=== PATIENT | male | born 1945 | race Caucasian/White ===

== ENCOUNTER → 2017-01-11 | Outpatient (CLI) | payer BC ==
[~2017-01-11] MED LIST: TEST5GEL TOP
[2017-01-11 12:22] LABS: ESTIMATED AVERAGE GLUCOSE 126 mg/dl; HA1C FLAG Normal (Normal)
[2017-01-11 12:24] LABS: ALT/SGPT 15 U/L (12-78); BLOOD UREA NITROGEN 17 mg/dl (7-18); BUN/CREATININE RATIO 16.9 (10-20); CALCIUM 8.1 mg/dl (8.5-10.1); CARBON DIOXIDE 26 mmol/L (21-32); CHLORIDE 111 mmol/L (98-107); GLUCOSE 90 mg/dl (70-99); POTASSIUM 4.1 mmol/L (3.5-5.1); SODIUM 144 mmol/L (136-145)
[2017-01-11 12:28] LABS: ALB/GLOB RATIO 0.6 (0.9-2); ALKALINE PHOSPHATASE 67 U/L (45-117); AST/SGOT 14 U/L (15-37)
--- NOTE | 2017-01-15 11:36 | CODING QUERY MEDICAL NECESSITY ---
SUPPORTING DIAGNOSIS NEEDED A supporting diagnosis is required for the test/procedure performed on this patient in order for us to be reimbursed by the patient's insurance. Please provide a supporting diagnosis for the following test/procedure listed below next to the test name along with your signature. *If there is no additional diagnosis for this patient that would support the following test/procedure please document that below next to the test/procedure. Test(s)/Procedure(s) that require a supporting diagnosis: * PSA DIAGNOSIS: * DOS: 01/11/17 Provider Signature: Date: Thank you Mayelin Douglas [employer] Once completed, please kindly fax back to [phone] For questions please call [phone]
--- NOTE | 2017-01-15 11:39 | CODING QUERY MEDICAL NECESSITY ---
SUPPORTING DIAGNOSIS NEEDED A supporting diagnosis is required for the test/procedure performed on this patient in order for us to be reimbursed by the patient's insurance. Please provide a supporting diagnosis for the following test/procedure listed below next to the test name along with your signature. *If there is no additional diagnosis for this patient that would support the following test/procedure please document that below next to the test/procedure. Test(s)/Procedure(s) that require a supporting diagnosis: * GLYCATED HEMOGLOBIN DIAGNOSIS: * DOS: 01/11/17 Provider Signature: Date: Thank you Mayelin Douglas Health Information Management Once completed, please kindly fax back to [phone] For questions please call [phone]
== END | disposition home or self-care (01) ==
LOC: C.LAB 10:39
PROVIDERS: ATTEND Family Medicine
DX: J34.3 Hypertrophy of nasal turbinates (principal); R73.03 Prediabetes; N40.1 Benign prostatic hyperplasia with lower urinary tract symptoms

== ENCOUNTER 2017-09-04 01:54 | Emergency (ER) | payer BC ==
[~2017-09-04] VITALS: Ht 157.5 cm; Wt 74.8 kg
[2017-09-04 01:57] VITALS: TEMP 36.8; Ht 157.5 cm; Wt 74.8 kg
[2017-09-04] MEDS ORDERED: PROPARACAINE HCL 0.5% OP SOLN 15 ML BTL ONE (02:05)
[2017-09-04] MEDS ORDERED: CIPROFLOXACIN HCL 0.3% OP SOLN 2.5 ML BTL OP STA (02:24)
--- NOTE | 2017-09-04 02:48 | EMERGENCY ROOM VISIT NOTE ---
ED Visit Note First contact with patient: 02:04 CHIEF COMPLAINT: Eye pain HISTORY OF PRESENT ILLNESS: This 72 yo patient presents to the emergency department with complaining of pain in the right eye after accidently breaking a bowl and possibly getting a piece of this in his eye. There has been a constant moderate pain and irritation, redness and tearing in the eye. There is a mild blurring of vision at times and light bothers the eye. The vision has not been decreased over all. The patient does not wear contacts. The patient rates the pain as irritating and 6/10. The patient has not had previous injuries to this eye. Tetanus shot is unsure if up to date. Patient has had cataract surgery and follows with ophthalmology in [place]. REVIEW OF SYSTEMS: A 6 system review of systems was completed with positives and pertinent negatives listed in the HPI. ALLERGIES: None MEDICATIONS: None PMH: Cataract surgery SOCIAL HISTORY: No drug use PHYSICAL EXAM: Vital Signs: Reviewed Nurse's notes, vital signs hypertensive. Visual acuity reviewed from nursing. GENERAL: This is a pleasant anxious- appearing male, in no acute distress, but who is uncomfortable from the eye problem. Well-developed well-nourished. EYES: The pupils are equal round and reactive to light and accommodation. EOMs are full and without tenderness. There is discharge of clear tears from the right eye which is injected. There is no foreign body visible under the eyelid even after lid eversion. Funduscopic exam reveals no hemorrhages, papilledema, or other abnormalities. No foreign body was seen embedded in the cornea under slit lamp exam. The cornea was clear and no hyphema was seen. Fluorescein uptake was observed with ultraviolet light significant for a corneal abrasion at 7:00 2 mm. Blood pressure was reviewed and most likely elevated secondary to situational. EMERGENCY DEPARTMENT COURSE: I examined the patient. Alcaine 2 drops were placed in the patient's right eye. A slit lamp exam was performed as above. Ciloxan two drops was placed in the patient's right eye. Patient was concern for other foreign bodies in the eyes and the eye was irrigated. I was reassessed and still no formalized visualized. He was advised to follow-up with mounted police officer in a few days or here in the ER sooner for eye pain, vision problems, worsening signs or symptoms or as needed. The patient was discharged home in good condition. DIAGNOSIS: Corneal abrasion of the right eye DISCHARGE INSTRUCTIONS AND TREATMENT: Use Ciloxin two drops in right eye every two hours while awake for two days; then two drops every four hours while awake for 5 days. Use Ibuprofen 600 mg or Tylenol 1000 mg every 6 hrs as needed for moderate pain. Follow up with your mounted police officer in 24-48 hours for a recheck. Return to the ED for increasing pain or changes in vision. Current/Historical Medications Scheduled Testosterone (Androgel Pump), 40.5 MG TOP DAILY Allergies Coded Allergies: No Known Allergies (Unverified , 01/08/16) Vital Signs Date Time Temp Pulse Resp B/P (MAP) Pulse Ox O2 Delivery O2 Flow Rate FiO2 09/04/17 01:57 36.8 65 20 189/82 97 Room Air Departure Information Referrals Denzel Srivastava M.D. (PCP) Patient Instructions [facility]
[2017-09-04 03:22] VITALS: BP 130/78; PULSE 70; O2SAT 92
--- NOTE | 2017-09-04 04:13 | EMERGENCY ROOM VISIT NOTE ---
ED Visit Note First contact with patient: 02:04 I have personally seen and evaluated the patient with the PA. I agree with the diagnosis and management decisions and have been personally involved in the case. Please see Whitley Carrillo PA-C's notes for further details of the history, physical and visit.
== END 2017-09-04 03:24 | disposition home or self-care (01) ==
LOC: C.EDB 01:56 → C.EDA 03:24
DX: S05.01XA Injury of conjunctiva and corneal abrasion without foreign body, right eye, initial encounter (principal); X58.XXXA Exposure to other specified factors, initial encounter; Z98.49 Cataract extraction status, unspecified eye; Z79.899 Other long term (current) drug therapy

== ENCOUNTER → 2018-01-13 | Outpatient (CLI) | payer BC | END | disposition home or self-care (01) | LOC: C.LAB 11:36 | PROVIDERS: ATTEND Urology | DX: Z00.00 Encounter for general adult medical examination without abnormal findings (principal); N40.1 Benign prostatic hyperplasia with lower urinary tract symptoms; N52.9 Male erectile dysfunction, unspecified ==

== ENCOUNTER 2024-01-23 19:16 | Inpatient (IN) ==
[2024-01-23] MEDS: OPTIRAY 320 125ml IV ONE (20:21)
[2024-01-23 20:32] LABS: Eosinophils # (auto) 0.29 K/uL (0.00-0.50); Hemoglobin 14.5 g/dl (14.0-18.0); Immature Granulocytes # (auto) 0.02 K/uL (0.01-0.20); Immature Granulocytes % (auto) 0.2 %; Lymphocytes # (auto) 2.23 K/uL (1.20-3.40); Lymphocytes % (auto) 23.2 %; Mean Corpuscular Hemoglobin 30.6 pg (25.0-34.0); Mean Corpuscular Hgb Conc 34.5 g/dL (32.0-36.0); Mean Corpuscular Volume 88.6 fL (80.0-100.0); Mean Platelet Volume 10.3 fL (9.4-12.4); Monocytes # (auto) 0.98 K/uL (0.11-0.59); Monocytes % (auto) 10.2 %; Neutrophils # (auto) 5.98 K/uL (1.40-6.50); Neutrophils % (auto) 62.4 %; Platelet Count 290 K/uL (130-400); RDW Standard Deviation 45.4 fL (36.4-46.3); Red Blood Count 4.74 M/uL (4.70-6.10)
[2024-01-23 20:36] LABS: BUN Creatinine Ratio 16.8 (10-20); Calcium 8.7 mg/dl (8.6-10.3); Creatinine Clr Calc Pharmacy 43.9 ml/min; Est GFR (African American) 67.4 ml/min; Est GFR (Non-African American) 58.2 ml/min; Potassium 3.6 mmol/L (3.5-5.1)
--- NOTE | 2024-01-23 20:45 | CT Scan Report ---
Exam(s): CTA CHEST IV Amt: 88 ml opti 320 EXAM: CT Angiography Chest With Intravenous Contrast CLINICAL HISTORY: ro PE. TECHNIQUE: Axial computed tomographic angiography images of the chest with intravenous contrast. CTDI is 19 mGy and DLP is 665.69 mGy-cm. Automated exposure control was utilized for the study. A dose lowering technique was utilized adhering to the principles of ALARA. MIP reconstructed images were created and reviewed. COMPARISON: No relevant prior studies available. FINDINGS: Pulmonary arteries: There is no evidence for pulmonary embolism. Aorta: The ascending aorta is ectatic, measuring 4 cm in diameter. The aortic arch and descending aorta are normal in caliber with atherosclerotic calcification. No thoracic aortic aneurysm. 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 Curvilinear presumed scarring noted posteriorly and laterally at the right lung apex. Subsegmental curvilinear changes noted in the posterior lower lobes bilaterally. Noncalcified pulmonary nodules are noted in the lateral aspect of the right lower lobe, anterobasal segment superiorly and inferiorly. The largest nodule noted superiorly measures 5 mm. No consolidation. Pleural space: Unremarkable. No significant effusion. No pneumothorax. Heart: The cardiac chambers are normal in size. There is reflux of contrast into the intrahepatic IVC and hepatic veins. Prominent coronary artery calcification. Trace pericardial effusion. Bones/joints: No acute fracture. No dislocation. Soft tissues: Unremarkable. Lymph nodes: Unremarkable. No enlarged lymph nodes. IMPRESSION: 1. There is no evidence for pulmonary embolism. 2. 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 Curvilinear presumed scarring noted posteriorly and laterally at the right lung apex. Subsegmental curvilinear changes noted in the posterior lower lobes bilaterally. Suspect subsegmental atelectasis. No pleural effusion or pneumothorax. 3. Noncalcified pulmonary nodules are noted in the lateral aspect of the right lower lobe, anterobasal segment superiorly and inferiorly. The largest nodule noted superiorly measures 5 mm. Fleischner Society Guidelines recommended considering a follow-up chest CT at 12 months in a patient with a high risk of malignancy due. If unchanged, no further follow-up is necessary. 4. The cardiac chambers are normal in size. There is reflux of contrast into the intrahepatic IVC and hepatic veins. This may be related to rate of contrast administration. However, this finding is often seen with right heart dysfunction. Please correlate with corollary cardiovascular studies, as appropriate. Electronically signed by: Jim Medina MD 01/23/24 20:44 PM
[2024-01-23 20:46] LABS: Partial Thromboplastin Time 29 Seconds (21-31); Prothrombin Time 10.9 Seconds (9.0-12.0); Troponin I High Sensitivity 10125.9 pg/ml (0-20)
[2024-01-23] MEDS ORDERED: Heparin IV Adult Wt-Based Low-Dose w/ INITIAL Bolus Protocol IV STA (20:58)
[2024-01-23] MEDS: ASPIRIN 81 MG CHEW PO STA (21:11)
[2024-01-23] MEDS ORDERED: HEPARIN SOD (PORCINE) 1000 UNIT/ML IV ONE (21:14)
[2024-01-23] MEDS: HEPARIN SOD (PORCINE) 1000 UNIT/ML IV ONE (21:28)
[2024-01-23] MEDS: HEPARIN SODIUM/DEXTROSE 25,000 UNITS/500 ML BAG IV SCH (21:28)
--- NOTE | 2024-01-23 22:12 | Emergency Department Note ---
History of Present Illness General Chief Complaint: Cardiac Assessment Stated Complaint: FEELS FAINT, TROPININ/3000,SOME CHEST PAIN Time Seen by Provider: 01/23/24 19:28 History of Present Illness Provider Complaint: chest pain Onset (ago): month(s) 1 Duration: intermittent Onset: during rest Pain Location: substernal Pain Radiation: none Severity: moderate Maximum Pain Intensity: 5 Current Pain Intensity: 0 Quality: + aching and + dull Relieved By: + nothing Exacerbated By: + nothing Context: + recent travel; no recent illness, no recent surgery, no recent immobilization, no trauma/injury, no new medications or no history of DVT/PE Associated symptoms: no nausea, no vomiting, no diaphoresis, no dyspnea, no syncope, no palpitations, no fever or no cough Patient went to his PCP today due to his ongoing chest pain and was referred to the emergency department due to an elevated troponin level. Home Medications Medication Instructions Recorded Confirmed Type ascorbic acid (vitamin C) 500 mg 500 mg PO DAILY 06/10/19 01/23/24 History tablet multivitamin 1 tab PO DAILY 06/12/19 01/23/24 History lactobacillus combination no.9 4 4,000 mmu cells PO DAILY 07/02/19 01/23/24 History billion cell capsule (Adult 50 Plus Probiotic) cholecalciferol (vitamin D3) 125 10,000 units PO DAILY 09/14/19 01/23/24 History mcg (5,000 unit) capsule cyanocobalamin (vitamin B-12) 1,000 mcg PO DAILY 01/23/24 01/23/24 History 1,000 mcg tablet (Vitamin B-12) vitamin K2 100 mcg capsule 100 mcg PO DAILY 01/23/24 01/23/24 History Allergies Allergy/AdvReac Type Severity Reaction Status Date / Time amoxicillin [From Augmentin] Allergy Unknown CAN'T Verified 01/23/24 21:23 REMEMBER clavulanic acid Allergy Unknown CAN'T Verified 01/23/24 21:23 [From Augmentin] REMEMBER Past Med/Surg History Medical History Osteoporosis 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 Erectile dysfunction Surgical History No significant past surgical history Social History Smoking Status: Never smoker Hx Alcohol Use: Yes Preferred Language: Filipino marital status: Current Living Situation: Spouse current occupational status: retired Feels Safe at Home: Yes Physical Exam Vital Signs Vital Signs - 24 hr 01/23/24 19:21 01/23/24 19:40 01/23/24 20:21 Temperature 36.5 C Temperature Source Temporal Artery Scan Pulse Rate 75 66 Pulse Rate [Left Apical] 78 Respiratory Rate 18 21 Respiratory Effort / Characteristics Non-Labored Spontaneous Non-Labored Respiratory Depth Normal Normal Respiratory Pattern Regular Blood Pressure 166/78 H Blood Pressure [Right Arm] 142/113 H Blood Pressure Mean 107 Blood Pressure Mean [Right Arm] 122 Pulse Oximetry 95 96 Oxygen Delivery Method Room Air Room Air Sepsis Recent Fever Within 48 Hours No Sepsis New/Unexplained Change in Mental Status N/A Sepsis Action Taken by Nursing No Action Required 01/23/24 21:00 Temperature Temperature Source Pulse Rate 64 Pulse Rate [Left Apical] Respiratory Rate 17 Respiratory Effort / Characteristics Respiratory Depth Respiratory Pattern Blood Pressure 141/75 H Blood Pressure [Right Arm] Blood Pressure Mean 97 Blood Pressure Mean [Right Arm] Pulse Oximetry 94 Oxygen Delivery Method Room Air Sepsis Recent Fever Within 48 Hours Sepsis New/Unexplained Change in Mental Status Sepsis Action Taken by Nursing Physical Exam GENERAL: oriented to person, place, and time. appears well-developed and well- nourished. HENT: Exam performed. - Head: Normocephalic and atraumatic. EYES: Conjunctivae and EOM are normal. Right eye exhibits no discharge. Left eye exhibits no discharge. No scleral icterus. NECK: Normal range of motion. Neck supple. No JVD present. CV: Normal rate, regular rhythm, normal heart sounds and intact distal pulses. There is no peripheral edema. Palpable radial pulses bue. PULM/CHEST: Effort normal and breath sounds normal. No respiratory distress. No stridor. no wheezes. no rales. ABD: The abdomen is soft. There is no tenderness. NEURO: Motor and sensation grossly intact. SKIN: Skin is warm and dry. He is not diaphoretic. PSYCH: normal mood and affect. Behavior is normal. Judgment and thought content normal. Course Course 1927: The patient was evaluated in room C1. A complete history and physical exam was performed Cardiac monitoring: An order was placed for continuous cardiac monitoring. The monitor shows a rate of 70 with sinus rhythm interpreted by nc 2115: Vital signs stable. Patient reports no chest pain at this time. Imaging shows no PE or dissection. Labs show an increase in his troponin up to 10,125 now. Patient is still reporting no chest pain. Discussed the case with [facility] cardiology Dr. Hawk as well as [facility] hospitalist team Dr. Carlson and we all agree to start the patient on heparin bolus and drip. Dr. Hawk also recommends aspirin and Lipitor 80 mg. Patient will be admitted to Dr. Carlson service Administered Medications Heparin Sodium/Dextrose (Heparin Sodium/Dextrose) 25,000 units in 500 mls @ 15 mls/hr IV .Q24H [facility]; Protocol Stop: 02/22/24 21:14 Last Admin: 01/23/24 21:28 Dose: 750 units/hr, 15 mls/hr Documented By: DULCE Co-signed By: MATTI Discontinued Medications Aspirin (Aspirin 81 Mg Chew) 324 mg PO NOW STA Stop: 01/23/24 21:01 Last Admin: 01/23/24 21:11 Dose: 324 mg Documented By: DULCE Heparin Sodium (Porcine) (Heparin Sod (Porcine) 1000 Unit/Ml) 4,000 units IV NOW ONE Stop: 01/23/24 21:31 Last Admin: 01/23/24 21:28 Dose: 4,000 units Documented By: DULCE Co-signed By: MATTI Ioversol (Optiray 320 125ml) 88 ml IV ONCE ONE Stop: 01/23/24 20:22 Last Admin: 01/23/24 20:21 Dose: 88 ml Documented By: GEORGE Medical Decision Making Medical Records Attestation: I reviewed the patient's medical records. Medical records narrative: External medical records reviewed. Patient had outpatient blood work done today at 1621 which was significant for high-sensitivity troponin of 3206.2. Laboratory Data Attestation: I reviewed the patient's lab results. 01/23/24 19:48 01/23/24 19:48 Labs: Lab Results 01/23/24 Range/Units 19:48 WBC 9.60 (4.8-10.8) K/ul RBC 4.74 (4.70-6.10) M/uL Hgb 14.5 (14.0-18.0) g/dl Hct 42.0 (42.0-52.0) % MCV 88.6 (80.0-100.0) fL MCH 30.6 (25.0-34.0) pg MCHC 34.5 (32.0-36.0) g/dL RDW Std Deviation 45.4 (36.4-46.3) fL RDW Coeff of Echo 14.0 (11.5-14.5) % Plt Count 290 (130-400) K/uL MPV 10.3 (9.4-12.4) fL Immature Gran % (Auto) 0.2 % Neut % (Auto) 62.4 % Lymph % (Auto) 23.2 % Shelby % (Auto) 10.2 % Eos % (Auto) 3.0 % Baso % (Auto) 1.0 % Neut # (Auto) 5.98 (1.40-6.50) K/uL Lymph # (Auto) 2.23 (1.20-3.40) K/uL Shelby # (Auto) 0.98 H (0.11-0.59) K/uL Eos # (Auto) 0.29 (0.00-0.50) K/uL Baso # (Auto) 0.10 (0.00-0.20) K/uL Immature Gran # (Auto) 0.02 (0.01-0.20) K/uL PT 10.9 (9.0-12.0) Seconds INR 1.0 (0.9-1.1) APTT 29 (21-31) Seconds PTT Ratio 1.0 Sodium 138 (136-145) mmol/L Potassium 3.6 (3.5-5.1) mmol/L Chloride 107 (98-107) mmol/L Carbon Dioxide 22 (21-32) mmol/L Anion Gap 9 (3-11) BUN 20 (6-23) mg/dl Creatinine 1.19 (0.6-1.4) mg/dl Est Cr Clr Drug Dosing 43.9 ml/min Est GFR ( Amer) 67.4 ml/min Est GFR (Non-Af Amer) 58.2 ml/min BUN/Creatinine Ratio 16.8 (10-20) Glucose 104 H (70-99(Fasting)) mg/dl Calcium 8.7 (8.6-10.3) mg/dl Troponin I High Sens 36466.9 H* D (0-20) pg/ml Lipase 41 (11-82) U/L Imaging Data Chest x-ray: Attestation: I personally reviewed and interpreted this imaging study as follows: My impression: Chest x-ray negative. Airway clear. No pneumothorax. No consolidation. No cardiomegaly or cephalization.. No free air under the diaphragm. No fractures of the skeletal structures. CT scan - chest: Radiologist's impression: Exam(s): CTA CHEST IV Amt: 88 ml opti 320 EXAM: CT Angiography Chest With Intravenous Contrast CLINICAL HISTORY: ro PE. TECHNIQUE: Axial computed tomographic angiography images of the chest with intravenous contrast. CTDI is 19 mGy and DLP is 665.69 mGy-cm. Automated exposure control was utilized for the study. A dose lowering technique was utilized adhering to the principles of ALARA. MIP reconstructed images were created and reviewed. COMPARISON: No relevant prior studies available. FINDINGS: Pulmonary arteries: There is no evidence for pulmonary embolism. Aorta: The ascending aorta is ectatic, measuring 4 cm in diameter. The aortic arch and descending aorta are normal in caliber with atherosclerotic calcification. No thoracic aortic aneurysm. 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 Curvilinear presumed scarring noted posteriorly and laterally at the right lung apex. Subsegmental curvilinear changes noted in the posterior lower lobes bilaterally. Noncalcified pulmonary nodules are noted in the lateral aspect of the right lower lobe, anterobasal segment superiorly and inferiorly. The largest nodule noted superiorly measures 5 mm. No consolidation. Pleural space: Unremarkable. No significant effusion. No pneumothorax. Heart: The cardiac chambers are normal in size. There is reflux of contrast into the intrahepatic IVC and hepatic veins. Prominent coronary artery calcification. Trace pericardial effusion. Bones/joints: No acute fracture. No dislocation. Soft tissues: Unremarkable. Lymph nodes: Unremarkable. No enlarged lymph nodes. IMPRESSION: 1. There is no evidence for pulmonary embolism. 2. 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 Curvilinear presumed scarring noted posteriorly and laterally at the right lung apex. Subsegmental curvilinear changes noted in the posterior lower lobes bilaterally. Suspect subsegmental atelectasis. No pleural effusion or pneumothorax. 3. Noncalcified pulmonary nodules are noted in the lateral aspect of the right lower lobe, anterobasal segment superiorly and inferiorly. The largest nodule noted superiorly measures 5 mm. Fleischner Society Guidelines recommended considering a follow-up chest CT at 12 months in a patient with a high risk of malignancy due. If unchanged, no further follow-up is necessary. 4. The cardiac chambers are normal in size. There is reflux of contrast into the intrahepatic IVC and hepatic veins. This may be related to rate of contrast administration. However, this finding is often seen with right heart dysfunction. Please correlate with corollary cardiovascular studies, as appropriate. Electronically signed by: Jim Medina MD 01/23/24 20:44 PM Dictated: 01/23/242043 Transcribed: 01/23/242043 ECG Data Attestation: I personally reviewed and interpreted this ECG as follows: Additional Comments: EKG #1 at 1931: Sinus arrhythmia with a rate of 72. [place] 162 QRS [address] elevation or ST depression. Bifascicular block present. No previous EKGs to compare. EKG #2 at 1946: Sinus rhythm with a rate of 62. [place] 150 QRS [address] elevation or ST depression. Bifascicular block present. No significant change from the EKG done at 1931. [facility] Narrative 1928: The patient was evaluated in room C1. A complete history and physical exam was performed Cardiac monitoring: An order was placed for continuous cardiac monitoring. The monitor shows a rate of 70 with sinus rhythm interpreted by nc 2115: Vital signs stable. Patient reports no chest pain at this time. Imaging shows no PE or dissection. Labs show an increase in his troponin up to 10,125 now. Patient is still reporting no chest pain. Discussed the case with [facility] cardiology Dr. Hawk as well as [facility] hospitalist team Dr. Carlson and we all agree to start the patient on heparin bolus and drip. Dr. Hawk also recommends aspirin and Lipitor 80 mg. Patient will be admitted to Dr. Carlson service Impression & Plan Non-ST elevation UT (NSTEMI) Critical Care Time Critical Care Time: Yes Total Critical Care Time: 78 I have personally spent greater than 78 minutes of critical care time in the direct management of this patient. This includes bedside care, interpretation of diagnostic studies, and testing, discussion with consultants, patient, and family members, and other required patient management activities. This 78 minutes is in excess of all separately billable procedures. Discharge Plan Visit Data Chief Complaint: Cardiac Assessment Stated Complaint: FEELS FAINT, TROPININ/3000,SOME CHEST PAIN ED Provider: Rick Ackerman Discharge Problem: Non-ST elevation UT (NSTEMI) Patient Disposition: Admitted As Inpatient Forms Stand Alone Forms: Counts Include [facility] Prescriptions Prescriptions: No Action ascorbic acid (vitamin C) 500 mg tablet 500 mg PO DAILY multivitamin tablet 1 tab PO DAILY Rx Instructions: OCCASIONALLY Adult 50 Plus Probiotic 4 billion cell capsule 4,000 mmu cells PO DAILY cholecalciferol (vitamin D3) 5,000 unit capsule 10,000 units PO DAILY cyanocobalamin (vitamin B-12) [Vitamin B-12] 1,000 mcg Tablet 1,000 mcg PO DAILY Rx Instructions: OCCASIONALLY vitamin K2 100 mcg Capsule 100 mcg PO DAILY Rx Instructions: OCCASIONALLY Referrals Referrals: Denzel Srivastava MD [Primary Care Provider] -
[2024-01-23] MEDS: ATORVASTATIN 40 MG TAB PO STA (22:20)
[2024-01-23] MEDS: LORazepam 0.5 MG TAB PO STA (23:27)
--- NOTE | 2024-01-24 01:24 | History & Physical Report ---
Date of Service January 24, 2024 Assessment & Plan (1) Non-ST elevation [place] (NSTEMI): Plan: 78-year-old male with past medical history significant for dyslipidemia, history of prediabetes, history of emphysema, lung nodules, chronic rhinitis, history of arterial calcification, BPH, history of positive CLAY, low testosterone in male, history of former tobacco abuse, history of osteonecrosis presents with chest pain and found to elevated troponins. Patient states having chest pains on and off since last 1 week. Since last2- 3 days the pain has been constant in the middle of the lower part of the chest at 1 spot. States it is very mild 1/10 in severity. No association with any activity. Denies any shortness of breath. Denies any dizziness. No sweating. No nausea. Patient states that he is not being very much active. Denies any cough. Denies any fevers. Vision is okay. No runny nose or sore throat. No cough. Appetite is okay. Normal bowel and bladder movements. Denies any blood in the stools and denies any hematuria. He states few days ago he noted some swelling in the legs. Went to PCP office today and labs showed elevated troponin and was advised to come to the ER Non-ST elevated WI Troponin was 3000 on outpatient labs Troponin was 10,000 in the ER and repeat was 15,000 Has mild chest discomfort Placed on IV heparin and received full dose aspirin and high-dose statin. Will continue aspirin and statin As his troponin is trending up and has mild chest discomfort repeated EKG which seems mostly similar to previous Discussed with cardiology Placed on Nitropaste If the pain does not improve with Nitropaste to call back interventional cardiology for possible urgent cardiac cath Checked him later after nitropaste and chest pain resolved Close monitoring telemetry Hyperlipidemia Will follow lipid profile DVT prophylaxis On IV heparin Disposition Telemetry Full code History of Present Illness Chief Complaint: Chest pain Primary Care Provider: Denzel Srivastava MD 78-year-old male with past medical history significant for dyslipidemia, history of prediabetes, history of emphysema, lung nodules, chronic rhinitis, history of arterial calcification, BPH, history of positive CLAY, low testosterone in male, history of former tobacco abuse, history of osteonecrosis presents with chest pain and found to elevated troponins. Patient states having chest pains on and off since last 1 week. Since last2- 3 days the pain has been constant in the middle of the lower part of the chest at 1 spot. States it is very mild 1/10 in severity. No association with any activity. Denies any shortness of breath. Denies any dizziness. No sweating. No nausea. Patient states that he is not being very much active. Denies any cough. Denies any fevers. Vision is okay. No runny nose or sore throat. No cough. Appetite is okay. Normal bowel and bladder movements. Denies any blood in the stools and denies any hematuria. He states few days ago he noted some swelling in the legs.Went to PCP office today and labs showed elevated troponin and was advised to come to the ER Past medical history. As mentioned above Past surgical history. No past surgical history on file. Social history. . Quit smoking 20ys ago. Prior to that smoked on and off 1pack/day for 30 years.. No alcohol use. No drug use. Family history. Father had nephritis and in his early 50s with brain aneurysm Allergies Allergy/AdvReac Type Severity Reaction Status Date / Time amoxicillin [From Augmentin] Allergy Unknown CAN'T Verified 01/23/24 21:23 REMEMBER clavulanic acid Allergy Unknown CAN'T Verified 01/23/24 21:23 [From Augmentin] REMEMBER Home Medications Medication Instructions Recorded Confirmed Type ascorbic acid (vitamin C) 500 mg 500 mg PO DAILY 06/10/19 01/23/24 History tablet multivitamin 1 tab PO DAILY 06/12/19 01/23/24 History lactobacillus combination no.9 4 4,000 mmu cells PO DAILY 07/02/19 01/23/24 History billion cell capsule (Adult 50 Plus Probiotic) cholecalciferol (vitamin D3) 125 10,000 units PO DAILY 09/14/19 01/23/24 History mcg (5,000 unit) capsule cyanocobalamin (vitamin B-12) 1,000 mcg PO DAILY 01/23/24 01/23/24 History 1,000 mcg tablet (Vitamin B-12) vitamin K2 100 mcg capsule 100 mcg PO DAILY 01/23/24 01/23/24 History Past Med/Surg History Medical History Osteoporosis 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 Erectile dysfunction Surgical History No significant past surgical history Social History Smoking Status: Former smoker Second Hand Exposure: No; Do You Dip or Chew Tobacco: No; Tobacco Cessation Education Requested by Patient: No Hx Alcohol Use: Yes Alcohol type: wine Hx Substance Use: No Preferred Language: Yemeni Communication Ability: Effective Client Program Manager Required: No Beliefs That Will Affect Care: None marital status: Current Living Situation: Spouse current occupational status: retired Other Information That Helps Us Care for You: No Feels Safe at Home: Yes Safety Concerns: Feels Safe At This Time Assistive Devices: Denture - Upper and Denture - Lower Review of Systems Review of Systems: All systems reviewed & are unremarkable except as noted in HPI & below Physical Exam Physical Exam: General- Not in distress. Head- atraumatic Eyes- PERRL. ENT- oropharynx clear Neck- supple, no JVD. Lungs- clear to auscultation no wheezing or crackles. Heart- regular rate and rhythm; no murmur, no gallop. Abdomen- normal bowel sounds, soft, nontender, no distension. Extremities- trace pretibial edema present, no erythema seen. Neuro- alert, oriented ; PERRL, no facial palsy; no dysarthria; moves extremities. Results & Data Results & Data Vital Signs (Past 12 Hours) Vital Signs Temp Pulse Pulse Resp BP BP Pulse Ox 01/24/24 00:10 67 18 95 01/24/24 00:00 139/79 01/24/24 00:00 61 16 97 01/23/24 23:54 77 16 01/23/24 23:40 61 14 97 01/23/24 23:32 62 01/23/24 23:30 135/73 01/23/24 23:30 67 15 01/23/24 23:00 62 19 133/57 L 96 01/23/24 22:30 64 20 137/72 95 01/23/24 22:00 70 13 142/77 H 94 01/23/24 21:00 64 17 141/75 H 94 01/23/24 20:21 78 21 142/113 H 96 01/23/24 19:40 66 01/23/24 19:21 36.5 C 75 18 166/78 H 95 O2 Del Method 01/24/24 00:10 01/24/24 00:00 01/24/24 00:00 01/23/24 23:54 01/23/24 23:40 01/23/24 23:32 01/23/24 23:30 01/23/24 23:30 01/23/24 23:00 Room Air 01/23/24 22:30 Room Air 01/23/24 22:00 Room Air 01/23/24 21:00 Room Air 01/23/24 20:21 Room Air 01/23/24 19:40 01/23/24 19:21 Room Air Diagnostic Findings Laboratory Results WBC 9.60 K/ul (4.8-10.8) 01/23/24 19:48 RBC 4.74 M/uL (4.70-6.10) 01/23/24 19:48 Hgb 14.5 g/dl (14.0-18.0) 01/23/24 19:48 Hct 42.0 % (42.0-52.0) 01/23/24 19:48 MCV 88.6 fL (80.0-100.0) 01/23/24 19:48 MCH 30.6 pg (25.0-34.0) 01/23/24 19:48 MCHC 34.5 g/dL (32.0-36.0) 01/23/24 19:48 RDW Std Deviation 45.4 fL (36.4-46.3) 01/23/24 19:48 RDW Coeff of Echo 14.0 % (11.5-14.5) 01/23/24 19:48 Plt Count 290 K/uL (130-400) 01/23/24 19:48 MPV 10.3 fL (9.4-12.4) 01/23/24 19:48 Immature Gran % (Auto) 0.2 % 01/23/24 19:48 Neut % (Auto) 62.4 % 01/23/24 19:48 Lymph % (Auto) 23.2 % 01/23/24 19:48 [place] % (Auto) 10.2 % 01/23/24 19:48 Eos % (Auto) 3.0 % 01/23/24 19:48 Baso % (Auto) 1.0 % 01/23/24 19:48 Neut # (Auto) 5.98 K/uL (1.40-6.50) 01/23/24 19:48 Lymph # (Auto) 2.23 K/uL (1.20-3.40) 01/23/24 19:48 [place] # (Auto) 0.98 K/uL (0.11-0.59) H 01/23/24 19:48 Eos # (Auto) 0.29 K/uL (0.00-0.50) 01/23/24 19:48 Baso # (Auto) 0.10 K/uL (0.00-0.20) 01/23/24 19:48 Immature Gran # (Auto) 0.02 K/uL (0.01-0.20) 01/23/24 19:48 PT 10.9 Seconds (9.0-12.0) 01/23/24 19:48 INR 1.0 (0.9-1.1) 01/23/24 19:48 APTT 29 Seconds (21-31) 01/23/24 19:48 PTT Ratio 1.0 01/23/24 19:48 Sodium 138 mmol/L (136-145) 01/23/24 19:48 Potassium 3.6 mmol/L (3.5-5.1) 01/23/24 19:48 Chloride 107 mmol/L (98-107) 01/23/24 19:48 Carbon Dioxide 22 mmol/L (21-32) 01/23/24 19:48 Anion Gap 9 (3-11) 01/23/24 19:48 BUN 20 mg/dl (6-23) 01/23/24 19:48 Creatinine 1.19 mg/dl (0.6-1.4) 01/23/24 19:48 Est Cr Clr Drug Dosing 43.9 ml/min 01/23/24 19:48 Est GFR ( Amer) 67.4 ml/min 01/23/24 19:48 Est GFR (Non-Af Amer) 58.2 ml/min 01/23/24 19:48 BUN/Creatinine Ratio 16.8 (10-20) 01/23/24 19:48 Glucose 104 mg/dl (70-99(Fasting)) H 01/23/24 19:48 Calcium 8.7 mg/dl (8.6-10.3) 01/23/24 19:48 Troponin I High Sens 08034.2 pg/ml (0-20) H* D 01/23/24 21:53 Lipase 41 U/L (11-82) 01/23/24 19:48 Impressions Chest CTA 01/23/24 19:43 Exam(s): CTA CHEST IV Amt: 88 ml opti 320 EXAM: CT Angiography Chest With Intravenous Contrast CLINICAL HISTORY: ro PE. TECHNIQUE: Axial computed tomographic angiography images of the chest with intravenous contrast. CTDI is 19 mGy and DLP is 665.69 mGy-cm. Automated exposure control was utilized for the study. A dose lowering technique was utilized adhering to the principles of ALARA. MIP reconstructed images were created and reviewed. COMPARISON: No relevant prior studies available. FINDINGS: Pulmonary arteries: There is no evidence for pulmonary embolism. Aorta: The ascending aorta is ectatic, measuring 4 cm in diameter. The aortic arch and descending aorta are normal in caliber with atherosclerotic calcification. No thoracic aortic aneurysm. 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 Curvilinear presumed scarring noted posteriorly and laterally at the right lung apex. Subsegmental curvilinear changes noted in the posterior lower lobes bilaterally. Noncalcified pulmonary nodules are noted in the lateral aspect of the right lower lobe, anterobasal segment superiorly and inferiorly. The largest nodule noted superiorly measures 5 mm. No consolidation. Pleural space: Unremarkable. No significant effusion. No pneumothorax. Heart: The cardiac chambers are normal in size. There is reflux of contrast into the intrahepatic IVC and hepatic veins. Prominent coronary artery calcification. Trace pericardial effusion. Bones/joints: No acute fracture. No dislocation. Soft tissues: Unremarkable. Lymph nodes: Unremarkable. No enlarged lymph nodes. IMPRESSION: 1. There is no evidence for pulmonary embolism. 2. 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 Curvilinear presumed scarring noted posteriorly and laterally at the right lung apex. Subsegmental curvilinear changes noted in the posterior lower lobes bilaterally. Suspect subsegmental atelectasis. No pleural effusion or pneumothorax. 3. Noncalcified pulmonary nodules are noted in the lateral aspect of the right lower lobe, anterobasal segment superiorly and inferiorly. The largest nodule noted superiorly measures 5 mm. Fleischner Society Guidelines recommended considering a follow-up chest CT at 12 months in a patient with a high risk of malignancy due. If unchanged, no further follow-up is necessary. 4. The cardiac chambers are normal in size. There is reflux of contrast into the intrahepatic IVC and hepatic veins. This may be related to rate of contrast administration. However, this finding is often seen with right heart dysfunction. Please correlate with corollary cardiovascular studies, as appropriate. Electronically signed by: Jim Medina MD 01/23/24 20:44 PM ECG Additional Comments: ECG. Normal sinus rhythm at a rate of 62. Right bundle branch block. Left anterior fascicle block. Nonspecific T wave abnormalities in anterior leads. Q waves in inferior leads. Code Status & VTE Plan VTE Prophylaxis Plan VTE Prophylaxis will be ordered: Yes
[2024-01-24] MEDS ORDERED: ACETAMINOPHEN 325 MG TAB PO PRN (01:43)
[2024-01-24] MEDS ORDERED: NITROGLYCERIN SL 0.4 MG/TAB TAB SL PRN (01:43)
[2024-01-24] MEDS: NITROGLYCERIN 2% OINTMENT 30GM TUBE EXT SCH (02:04)
[2024-01-24 04:08] LABS: Eosinophils # (auto) 0.26 K/uL (0.00-0.50); Eosinophils % (auto) 2.6 %; Hematocrit (blood only) 40.4 % (42.0-52.0); Hemoglobin 13.6 g/dl (14.0-18.0); Immature Granulocytes # (auto) 0.03 K/uL (0.01-0.20); Immature Granulocytes % (auto) 0.3 %; Lymphocytes # (auto) 1.78 K/uL (1.20-3.40); Lymphocytes % (auto) 17.9 %; Mean Corpuscular Hemoglobin 29.8 pg (25.0-34.0); Mean Corpuscular Hgb Conc 33.7 g/dL (32.0-36.0); Mean Corpuscular Volume 88.4 fL (80.0-100.0); Mean Platelet Volume 10.4 fL (9.4-12.4); Monocytes # (auto) 0.89 K/uL (0.11-0.59); Monocytes % (auto) 8.9 %; Neutrophils # (auto) 6.89 K/uL (1.40-6.50); Neutrophils % (auto) 69.3 %; Platelet Count 280 K/uL (130-400); RDW Coefficient of Variation 14.1 % (11.5-14.5); RDW Standard Deviation 45.2 fL (36.4-46.3); Red Blood Count 4.57 M/uL (4.70-6.10); White Blood Count 9.95 K/ul (4.8-10.8)
[2024-01-24 04:18] LABS: BUN Creatinine Ratio 15.3 (10-20); Calcium 8.6 mg/dl (8.6-10.3); Chol HDL Ratio 4.7 (0-5); Creatinine Clr Calc Pharmacy 46.9 ml/min; Est GFR (African American) 73.3 ml/min; Est GFR (Non-African American) 63.3 ml/min; Magnesium 1.9 mg/dl (1.7-2.4); Potassium 3.7 mmol/L (3.5-5.1)
[2024-01-24 05:26] LABS: ANTI-Xa, UFH(UnfractionatedHep 0.34 IU/ml (0.3-0.7)
--- NOTE | 2024-01-24 07:13 | XRay Report ---
XR chest 1V portable HISTORY: Chest pain, nonspecific COMPARISON: Chest 12/25/2006. FINDINGS: No pneumothorax. No pleural effusions. The heart is normal in size. No evidence for pulmona ry edema. No acute fractures. Emphysema with linear scarlike densities within the right upper lobe. IMPRESSION: Emphysema with linear scarlike densities within the right upper lobe. Otherwise, no acute process wit hin the chest. ACT 112: Negative or not required by law. Electronically signed by: Jose Manuel Villaseñor M.D. 01/24/2024 7:11 AM
--- NOTE | 2024-01-24 08:54 | Cardiology Consultation ---
Date of Consultation January 24, 2024 Assessment & Plan (1) Non-ST elevation [place] (NSTEMI): (2) Ischemic cardiomyopathy: (3) Dyslipidemia, goal LDL below 70: (4) Former tobacco use: Plan 78-year-old male admitted with NSTEMI. Echocardiogram demonstrating inferior posterior severe hypokinesis to akinesis. High-sensitivity troponin up to 20,000. Risk, benefits, alternatives to left heart catheterization with coronary angiography discussed. Patient agreeable to proceed. Continue IV heparin, statin, and aspirin. Further recommendations pending result of coronary angiography. Addition of evidence-based heart failure medications including KOKO inhibitor, ARB, Entresto, Aldactone, and beta-maryjane will be addressed post procedure. I spent a total of 60 minutes on the date of service in preparation, delivery, and documentation of the care provided to this patient, excluding any time spent in the performance of separately billed services. History of Present Illness Reason for Consultation: NSTEMI Requesting Physician: Dr. Ackerman Attending Physician: Sally Leung MD History of Present Illness 78-year-old patient presented emergency department with approximately 7 days of intermittent chest discomfort. Describes a lower substernal discomfort which can last more than 1 hour period. Notes associated shortness of breath. No radiation of pain to his neck or left arm. No jaw discomfort. He was evaluated by his primary care physician yesterday who ordered an outpatient high- sensitivity troponin. Due to elevated high-sensitivity troponin, patient was referred to the ER. Overnight his high-sensitivity troponin has trended upward to 20,000. I was called by the hospitalist last night due to some recurrent, mild chest discomfort. Topical nitrates applied and patient remained chest pain-free overnight. Currently he is feeling well and resting comfortably. Somewhat anxious regarding his diagnosis. Denies history of diabetes, hypertension, congestive heart failure, coronary disease, or dyslipidemia. He takes no medications on a regular basis. Former tobacco abuse noted. Denies any family history of premature coronary disease. Allergies Allergy/AdvReac Type Severity Reaction Status Date / Time amoxicillin [From Augmentin] Allergy Unknown CAN'T Verified 01/23/24 21:23 REMEMBER clavulanic acid Allergy Unknown CAN'T Verified 01/23/24 21:23 [From Augmentin] REMEMBER Home Medications Medication Instructions Recorded Confirmed Type ascorbic acid (vitamin C) 500 mg 500 mg PO DAILY 06/10/19 01/23/24 History tablet multivitamin 1 tab PO DAILY 06/12/19 01/23/24 History lactobacillus combination no.9 4 4,000 mmu cells PO DAILY 07/02/19 01/23/24 History billion cell capsule (Adult 50 Plus Probiotic) cholecalciferol (vitamin D3) 125 10,000 units PO DAILY 09/14/19 01/23/24 History mcg (5,000 unit) capsule cyanocobalamin (vitamin B-12) 1,000 mcg PO DAILY 01/23/24 01/23/24 History 1,000 mcg tablet (Vitamin B-12) vitamin K2 100 mcg capsule 100 mcg PO DAILY 01/23/24 01/23/24 History Patient History Medical History Osteoporosis 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 Erectile dysfunction Surgical History No significant past surgical history Social History Smoking Status: Former smoker Second Hand Exposure: No; Do You Dip or Chew Tobacco: No; Tobacco Cessation Education Requested by Patient: No Hx Alcohol Use: Yes Alcohol type: wine Hx Substance Use: No Preferred Language: Taiwanese Communication Ability: Effective Gift Officer Required: No Beliefs That Will Affect Care: None marital status: Current Living Situation: Spouse current occupational status: retired Other Information That Helps Us Care for You: No Feels Safe at Home: Yes Safety Concerns: Feels Safe At This Time Assistive Devices: Denture - Upper and Denture - Lower Review of Systems Review of Systems: All systems reviewed & are unremarkable except as noted in Subjective Physical Exam Constitutional: well nourished; no acute distress and not ill appearing Respiratory: normal respiratory effort; no respiratory distress, no labored breathing and no retractions Auscultation: lungs clear to auscultation bila terally; no crackles, no rales, no rhonchi and no wheezes Cardiovascular: Rate/Rhythm: regular rate and regular rhythm Heart Sounds: normal S1 and normal S2; no murmur Vessels: femoral pulses present and radial pulses present; no JVD and no carotid bruit Extremities: no edema Gastrointestinal (Abdomen): Inspection/Auscultation: abdomen normal to inspection and normal bowel sounds; abdomen not distended Neurologic: CN's II-XI intact bilaterally and moves all extremities Psychiatric: A+Ox3, euthymic affect Results & Data Vital Signs (Past 12 Hours) Vital Signs Temp Pulse Pulse Resp BP BP Pulse Ox 01/24/24 03:43 36.9 C 65 16 128/64 95 01/24/24 01:50 80 01/24/24 01:38 36.8 C 72 18 124/72 96 01/24/24 01:30 76 01/24/24 01:30 01/24/24 01:22 65 16 133/67 95 01/24/24 01:21 98 01/24/24 00:10 67 18 95 01/24/24 00:00 139/79 01/24/24 00:00 61 16 97 01/23/24 23:54 77 16 01/23/24 23:40 61 14 97 01/23/24 23:32 62 01/23/24 23:30 135/73 01/23/24 23:30 67 15 01/23/24 23:00 62 19 133/57 L 96 01/23/24 22:30 64 20 137/72 95 01/23/24 22:00 70 13 142/77 H 94 01/23/24 21:00 64 17 141/75 H 94 O2 Del Method 01/24/24 03:43 Room Air 01/24/24 01:50 01/24/24 01:38 Room Air 01/24/24 01:30 01/24/24 01:30 Room Air 01/24/24 01:22 Room Air 01/24/24 01:21 Room Air 01/24/24 00:10 01/24/24 00:00 01/24/24 00:00 01/23/24 23:54 01/23/24 23:40 01/23/24 23:32 01/23/24 23:30 01/23/24 23:30 01/23/24 23:00 Room Air 01/23/24 22:30 Room Air 01/23/24 22:00 Room Air 01/23/24 21:00 Room Air Laboratory Results Cardiac Enzymes 01/23/24 01/23/24 01/24/24 Range/Units 19:48 21:53 03:22 Troponin I High Sens 46503.9 H* D 28355.2 H* D 79380.0 H* D (0-20) pg/ml Coagulation 01/23/24 Range/Units 19:48 PT 10.9 (9.0-12.0) Seconds APTT 29 (21-31) Seconds Lipids 01/24/24 Range/Units 03:22 Triglycerides 102 (0-150) mg/dl Cholesterol 237 H (0-200) mg/dl HDL Cholesterol 50 mg/dl Cholesterol/HDL Ratio 4.7 (0-5) CBC 01/23/24 01/24/24 Range/Units 19:48 03:22 WBC 9.60 9.95 (4.8-10.8) K/ul RBC 4.74 4.57 L (4.70-6.10) M/uL Hgb 14.5 13.6 L (14.0-18.0) g/dl Hct 42.0 40.4 L (42.0-52.0) % Plt Count 290 280 (130-400) K/uL Neut # (Auto) 5.98 6.89 H (1.40-6.50) K/uL Lymph # (Auto) 2.23 1.78 (1.20-3.40) K/uL [place] # (Auto) 0.98 H 0.89 H (0.11-0.59) K/uL Eos # (Auto) 0.29 0.26 (0.00-0.50) K/uL Baso # (Auto) 0.10 0.10 (0.00-0.20) K/uL Comprehensive Metabolic Panel 01/23/24 01/24/24 Range/Units 19:48 03:22 Sodium 138 139 (136-145) mmol/L Potassium 3.6 3.7 (3.5-5.1) mmol/L Chloride 107 109 H (98-107) mmol/L Carbon Dioxide 22 22 (21-32) mmol/L BUN 20 17 (6-23) mg/dl Creatinine 1.19 1.11 (0.6-1.4) mg/dl Glucose 104 H 104 H (70-99(Fasting)) mg/dl Calcium 8.7 8.6 (8.6-10.3) mg/dl Intake and Output 04/11/24 04/12/24 04/12/24 22:59 06:59 14:59 Intake Total 121 / 121 Output Total 525 / 525 Balance -404 / -404 Intake: IV 121 / 121 Heparin Sodium/Dextrose 25,000 121 / 121 units In 500 ml @ 750 UNITS/HR 15 mls/hr IV .Q24H [facility] Rx#: [id number] Output: Urine 525 / 525 Other: Other Intake Source NPO Weight 69.8 kg 64.9 kg Weight Measurement Method Chair Scale Standing Scale
--- NOTE | 2024-01-24 09:01 | Pre Anesthesia Assessment ---
Date of Service January 24, 2024 Pre Sedation Assessment Vital Signs Temp Pulse Pulse Resp BP BP Pulse Ox 01/24/24 08:50 68 18 95 01/24/24 03:43 36.9 C 65 16 128/64 95 01/24/24 01:50 80 01/24/24 01:38 36.8 C 72 18 124/72 96 01/24/24 01:30 76 01/24/24 01:30 01/24/24 01:22 65 16 133/67 95 01/24/24 01:21 98 01/24/24 00:10 67 18 95 01/24/24 00:00 139/79 01/24/24 00:00 61 16 97 01/23/24 23:54 77 16 01/23/24 23:40 61 14 97 01/23/24 23:32 62 01/23/24 23:30 135/73 01/23/24 23:30 67 15 01/23/24 23:00 62 19 133/57 L 96 01/23/24 22:30 64 20 137/72 95 01/23/24 22:00 70 13 142/77 H 94 01/23/24 21:00 64 17 141/75 H 94 01/23/24 20:21 78 21 142/113 H 96 01/23/24 19:40 66 01/23/24 19:21 36.5 C 75 18 166/78 H 95 O2 Del Method 01/24/24 08:50 Room Air 01/24/24 03:43 Room Air 01/24/24 01:50 01/24/24 01:38 Room Air 01/24/24 01:30 01/24/24 01:30 Room Air 01/24/24 01:22 Room Air 01/24/24 01:21 Room Air 01/24/24 00:10 01/24/24 00:00 01/24/24 00:00 01/23/24 23:54 01/23/24 23:40 01/23/24 23:32 01/23/24 23:30 01/23/24 23:30 01/23/24 23:00 Room Air 01/23/24 22:30 Room Air 01/23/24 22:00 Room Air 01/23/24 21:00 Room Air 01/23/24 20:21 Room Air 01/23/24 19:40 01/23/24 19:21 Room Air Cardiovascular + regular rate and + regular rhythm + S1 normal and + S2 normal; no murmur + femoral pulses present and + radial pulses present; no JVD and no carotid bruit + edema (Trace left lower extremity ankle edema) Respiratory + respiratory effort normal; no respiratory distress, no labored breathing and no retractions no crackles, no rales, no rhonchi and no wheezes Pre-Sedation Airway Assessment Smoking Status: Former smoker Mallampati Class: III ASA: ASA3 NPO Status Date of Last Intake of Fluids: 01/23/24 Date of Last Intake of Solid Food: 01/23/24 Procedure Planning Contraindications for Sedation: none Current Medications Reviewed: Yes Notes The planned sedation has been discussed with the patient. Informed Consent was obtained. I have identified the patient, determined the appropriateness of sedation and have assessed the patient immediately prior to the procedure. All medicine(s) and interventions are by my order.
[2024-01-24] MEDS: NITROGLYCERIN/D5W 100MCG/ML 20ML SYR ONE (09:56)
[2024-01-24] MEDS: niCARdipine HCL INJ 2.5 MG/ML 10 ML AMP ONE (09:57)
[2024-01-24] MEDS: OPTIRAY 350 ONE (10:06)
[2024-01-24] MEDS: MIDAZOLAM HCL 1 MG/ML 2ML VIAL ONE (10:07)
[2024-01-24] MEDS: fentaNYL citrate PF 100 MCG/2 ML VIAL ONE (10:07)
[2024-01-24] MEDS: HEPARIN (PORCINE) 1000 UNIT/ML 10 ML (CATH LAB USE ONLY) ONE (10:07)
--- NOTE | 2024-01-24 10:10 | Post Anesthesia Assessment ---
Date of Service January 24, 2024 Post Sedation Assessment Vital Signs Temp Pulse Pulse Resp BP BP Pulse Ox 01/24/24 08:50 68 18 95 01/24/24 03:43 36.9 C 65 16 128/64 95 01/24/24 01:50 80 01/24/24 01:38 36.8 C 72 18 124/72 96 01/24/24 01:30 76 01/24/24 01:30 01/24/24 01:22 65 16 133/67 95 01/24/24 01:21 98 01/24/24 00:10 67 18 95 01/24/24 00:00 139/79 01/24/24 00:00 61 16 97 01/23/24 23:54 77 16 01/23/24 23:40 61 14 97 01/23/24 23:32 62 01/23/24 23:30 135/73 01/23/24 23:30 67 15 01/23/24 23:00 62 19 133/57 L 96 01/23/24 22:30 64 20 137/72 95 01/23/24 22:00 70 13 142/77 H 94 01/23/24 21:00 64 17 141/75 H 94 01/23/24 20:21 78 21 142/113 H 96 01/23/24 19:40 66 01/23/24 19:21 36.5 C 75 18 166/78 H 95 O2 Del Method 01/24/24 08:50 Room Air 01/24/24 03:43 Room Air 01/24/24 01:50 01/24/24 01:38 Room Air 01/24/24 01:30 01/24/24 01:30 Room Air 01/24/24 01:22 Room Air 01/24/24 01:21 Room Air 01/24/24 00:10 01/24/24 00:00 01/24/24 00:00 01/23/24 23:54 01/23/24 23:40 01/23/24 23:32 01/23/24 23:30 01/23/24 23:30 01/23/24 23:00 Room Air 01/23/24 22:30 Room Air 01/23/24 22:00 Room Air 01/23/24 21:00 Room Air 01/23/24 20:21 Room Air 01/23/24 19:40 01/23/24 19:21 Room Air Recovery Score Activity: Moves 4 extremities Respiration: Deep Breath/Cough Circulation: +/-20% PreAnes Value Consciousness: Arouseable (by name) Oxygen Saturation: > 92% On Room Air Discharge Sedation Level of Care: Phase I Post Sedation Plan On clinical assessment, the patient appears to have tolerated the sedation with out complications. Patient is recovering as anticipated. Patient will continue to be monitored by nursing and may be discharged when sedation discharge criteria are met per below protocol. Upon Completions of procedure up to 15 minutes continue every 5 minute vital signs and the P.A.R. score; then discharge to a Phase I or Fast Track to Phase II per the following guidelines: * Discharge Patient to appropriate Phase II area if PAR is 8 or greater or return to pre- procedure baseline. The post - procedure orders will be as directed. * If PAR score is less than 8 or not return to pre-procedure baseline then patient will follow Phase I monitoring till PAR is reached for Phase II. The Phase I may be done in procedure room or may call to secure a Phase I area. * If naloxone or flumazenil are used for reversal, hold in Phase I for continued monitoring from when last reversal dose was given for a minimum of 60 minutes or longer pending the nurse and/or physician discretion of patient condition before discharge to Phase II. Please call the Sedation Physician to re-evaluate and complete post-note for discharge to Phase II area. Do NOT discharge from procedure sedation or Phase 1 until post- sedation evaluation note is complete by procedure /sedation MD Sedation Discharge Instructions to be given to the patient at discharge to home.
--- NOTE | 2024-01-24 10:28 | Cardiac Catheterization ---
Cardiac Cath Procedure Full Procedure Date January 24, 2024 Pre-Procedure Diagnosis Pre-Procedure Diagnosis: Non STEMI and Cardiomyopathy AUC Score AUC Score: 8 Post-Procedure Diagnosis Post-Procedure Diagnosis: Severe CAD and Normal Intracardiac Pressures Procedure(s) Performed Procedure(s) Performed: Coronary Angiography and Left Heart Cath Chief Radiation Therapist Baldemar Hawk DO American Sign Language Interpreter(s) Showers RN Estimated Blood Loss Estimated Blood Loss: 6cc Medication(s) Medication(s): Fentanyl, Heparin, Lidocaine 1%, Nicardipine, Nitroglycerin and Versed Summary of Findings 70% mid LAD 70% proximal OM1 (small vessel) 95% mid OM2 (acute) 90% ostial RCA 99% mid RCA (acute) Left to collaterals with competitive flow in the distal RPDA. Hemodynamics Rest Ao:: 78/42/57 Final Ao: 95/46/64 LV: 98/3/14 Recommendations Recommendations: CABG Specimens Specimens: None Radiation Exposure (mGy) 808 Contrast (mls) 60 Fluids (cc crystalloids) Fluids (cc crystalloids): 282 Nss Drains Drains: N/A Anesthesia Moderate sedation. Start 0934. End 1007. Sedation monitor: Jerry POST Procedural Complication(s) None Disposition Rag Cutting Machine Tender Holding/Recovery I attest to the content of the Intraoperative Record and any orders documented therein. Any exceptions are noted below. ACC Data: Rag Cutting Machine Tender Cardiac Status Clinical evaluation leading to the procedure 78-year-old male with NSTEMI. Echocardiogram demonstrating ischemic cardiomyopathy with inferior posterior hypokinesis to akinesis. CAD Presenation: Non STEMI Anginal Classification: CCS IV Heart Failure: NYHA Class: CCS II Cardiogenic Shock within 24 Hours: No Cardiac Arrest within 24 Hours: No Imaging Studies Past 6 Months: Yes Stress Studies Past 6 Months: No STEMI OR Non-STEMI Symptom Onset Date: 01/17/24 Symptom Onset Time: 08:00 Thrombolytics: No Coronary Anatomy Dominant: Right Left Main (% Stenosis): Normal LAD (% Stenosis): Proximal (30%), Mid (70% followed by 60%) and Distal (40%) D1 (% Stenosis): Ostial (70%) D2 (% Stenosis): Proximal (50% small vessel) D3 (% Stenosis): Normal (small vessel) OM1 (% Stenosis): Proximal (70% small vessel) OM2 (% Stenosis): Mid (95% (acute)) RCA (% Stenosis): Ostial (90% (damped waveform) followed by an area of post- obstructive dilatation), Proximal (30% diffuse) and Mid (99% acute) R PDA (% Stenosis): Proximal (30%) and Distal (Competitive flow from left to right collaterals) R PL1 (% Stenosis): Normal R PL2 (% Stenosis): Normal Diagnostic Physicians Name: Baldemar Hawk DO Closure Device Percutaneous Entry Location: Radial Closure Device: Radial Band Recommendations: CABG Intraprocedure Events Significant Disection: No Perforation: No
[2024-01-24] MEDS: MULTIVITAMIN TAB PO SCH (10:56)
[2024-01-24] MEDS: CYANOCOBALAMIN (B-12) 500 MCG TABLET PO SCH (10:57)
[2024-01-24] MEDS: ASCORBIC ACID 500 MG TAB PO SCH (10:57)
[2024-01-24] MEDS: ATORVASTATIN 40 MG TAB PO SCH (11:01)
--- NOTE | 2024-01-24 12:36 | Communication Note ---
Date of Service: January 24, 2024 Evaluated patient at bedside s/p C. Notably agitated at this time regarding COVID swab. Discussed and educated patient on purpose. Agreed. Will be transferred to [facility] 2/2 severe multivessel CAD requiring evaluation by CTS Continue Heparin, statin,asa BB held 2/2 relative bradycardia Pending transport for d/c
[2024-01-24 13:10] LABS: Influenza A virus by PCR Negative (Neg); Influenza B virus by PCR Negative (Neg); RSV by PCR Negative (Neg); SARS CoV2 RNA(COVID-19) Ceph NEGATIVE (Negative)
[2024-01-24] MEDS: ASPIRIN 81 MG ECTAB PO SCH (14:00)
--- NOTE | 2024-01-24 16:44 | Discharge Summary ---
Discharge Summary Date of Service January 24, 2024 Notes For Next Care Provider Transfer to [facility] for CTS eval 2/2 severe multivessel CAD Medication Changes From Visit Heparin drip Admission HPI Per Admitting Provider 78-year-old male with past medical history significant for dyslipidemia, history of prediabetes, history of emphysema, lung nodules, chronic rhinitis, history of arterial calcification, BPH, history of positive CLAY, low testosterone in male, history of former tobacco abuse, history of osteonecrosis presents with chest pain and found to elevated troponins. Patient states having chest pains on and off since last 1 week. Since last2- 3 days the pain has been constant in the middle of the lower part of the chest at 1 spot. States it is very mild 1/10 in severity. No association with any activity. Denies any shortness of breath. Denies any dizziness. No sweating. No nausea. Patient states that he is not being very much active. Denies any cough. Denies any fevers. Vision is okay. No runny nose or sore throat. No cough. Appetite is okay. Normal bowel and bladder movements. Denies any blood in the stools and denies any hematuria. He states few days ago he noted some swelling in the legs.Went to PCP office today and labs showed elevated troponin and was advised to come to the ER Past medical history. As mentioned above Past surgical history. No past surgical history on file. Social history. . Quit smoking 20ys ago. Prior to that smoked on and off 1pack/day for 30 years.. No alcohol use. No drug use. Family history. Father had nephritis and in his early 50s with brain aneurysm Admission Exam Per Admitting Provider General- Not in distress. Head- atraumatic Eyes- PERRL. ENT- oropharynx clear Neck- supple, no JVD. Lungs- clear to auscultation no wheezing or crackles. Heart- regular rate and rhythm; no murmur, no gallop. Abdomen- normal bowel sounds, soft, nontender, no distension. Extremities- trace pretibial edema present, no erythema seen. Neuro- alert, oriented ; PERRL, no facial palsy; no dysarthria; moves extremities. Principal Dx & Hospital Course #1 = Principal Diagnosis (1) Non-ST elevation IL (NSTEMI): Mr. Parnell is a 78-year-old male with past medical history significant for dyslipidemia, history of prediabetes, history of emphysema, lung nodules, chronic rhinitis, history of arterial calcification, BPH, history of positive CLAY, low testosterone in male, history of former tobacco abuse, history of osteonecrosis presents with chest pain and found to elevated troponins. LHC revealed severe obstructive multivessel CAD. Transferred to [facility] for CTS eval. #NSTEMI #Severe multivessel obstructive CAD #HFmrEF, ischemic cardiomyopathy Continue IV heparin Continue asa and statin Hold BB given relative bradycardia ECHO 45-50% with wall motion abnormalty Discharge Exam Constitutional WD/WN, vitals as above Respiratory normal respiratory effort, lungs clear to auscultation Cardiovascular RRR, no murmur, no edema Updated Medication List Medication Instructions Recorded Confirmed Type ascorbic acid (vitamin C) 500 mg 500 mg PO DAILY 06/10/19 01/23/24 History tablet multivitamin 1 tab PO DAILY 06/12/19 01/23/24 History lactobacillus combination no.9 4 4,000 mmu cells PO DAILY 07/02/19 01/23/24 History billion cell capsule (Adult 50 Plus Probiotic) cholecalciferol (vitamin D3) 125 10,000 units PO DAILY 09/14/19 01/23/24 History mcg (5,000 unit) capsule cyanocobalamin (vitamin B-12) 1,000 mcg PO DAILY 01/23/24 01/23/24 History 1,000 mcg tablet (Vitamin B-12) vitamin K2 100 mcg capsule 100 mcg PO DAILY 01/23/24 01/23/24 History aspirin 81 mg tablet,delayed 81 mg PO QAM #30 tabs 01/24/24 Rx release atorvastatin 40 mg tablet 80 mg (2 x 40 mg) PO QAM #30 tabs 01/24/24 Rx Hospital Stay Data Consultations 01/23/24 20:59 ED Decision to Admit Stat 01/23/24 21:01 Consult Cardiology Stat 01/24/24 11:05 Burn CD for patient Routine Procedures Performed Operation Date: 01/24/24 08:00 Actual Procedures p Cath, Left with Cors and Vent - Baldemar Hawk DO s Cineradiography w/Routine Exam - Baldemar Hawk DO Diagnostic Imagining Performed 01/23/24 19:43 CT angio chest PE protocol Stat 01/24/24 07:30 CL Cath Imgs for PACS use only Routine Pending Results Patient Have Any Pending Studies at Discharge: No Discharge Instructions Given to Patient (Per Discharging Provider) You were admitted for chest pain and found to have severe coronary artery disease. You will be transferred for evaluation by Cardiothoracic surgery for intervention given severity of disease in your vessels. You will remain on a heparin drip during transfer. Total Time Total Time Spent Total Time Spent (In Minutes): 45
--- OUTSIDE RECORDS SUMMARY | 2024-01-24 21:34 | External Medical Summary | Summary of Care ---
Author Name Unknown Organization [facility] Address [address] [place] [address] Phone [phone] Care Team Providers Care Bookkeeping Clerks Supervisor Name Role Phone Denzel Srivastava MD Primary Care Provider [phone] Reason for Visit * Reason Onset Date Comments Test Results 01/23/2024 Critical results Encounter Details Date Type Department Care Team ([facility] st Contact Info) Description 01/23/2024 Telephone [facility] [address] [place] [address] Denzel Srivastava MD [address] [place] [address] Test Results (Critical results) Allergies Active Allergy Reactions Criticality Noted Date Comments Amoxicillin-Pot Clavulanate 07/25/20 17 Severe GI distress documented as of this encounter (statuses as of 01/23/2024) Medications Medication Sig Dispensed Refills Start Date End Date Status Misc Natural Products (SAW [place] PLUS) CAPS Take by mouth. 0 07/25/2017 A ctive Multiple Vitamins-Minerals (MULTIVITAMIN ADULT) TABS Take by mouth. 0 07/25/2017 Active Ascorbic Acid (VITAMIN C) 1000 MG Tablet Take 1 Tablet by mouth in the morning. Takes 4000 mg daily . 0 Active B Complex Capsule Take 1 Cap by mouth daily. 0 Active Cholecalciferol (VITAMIN D-3) 125 MCG (5000 UT) Tablet Take 1 Tablet by mouth in the morning. Takes with 180 mcg of Vitamin K.. 0 Active Triamcinolone Acetonide 0.1 % External Cream (Aristocort)Indicat ions:Venous stasis dermatitis of both lower extremities Apply to the distal lower extremities twice a day for 10 days. Then use twice a day as needed for stasis dermatitis. 453.6 g 0 11/21/2023 Active Omeprazole 20 MG Oral Capsule Delayed Release (PriLOSEC) Take 1 Capsule by mouth in the morning. 1 hour before the first meal of the day. 30 Capsule 5 01/23/2024 Active documented as of this encounter (statuses as of 01/23/2024) Active Problems Problem Noted Date Diagnosed Date Dyslipidemia 11/21/2023 Positive CLAY (antinuclear antibody) 11/21/2023 History of prediabetes 11/21/2023 Lung nodules 11/21/2023 Overview: CT chest 2019 Other emphysema 11/21/2023 Arterial calcification 11/21/2023 Overview: CT chest 2019 Other osteoporosis without current pathological fracture 11/21/2023 BPH with obstruction/lower urinary tract symptom s 11/21/2023 Low testosterone in male 11/21/2023 History of skin cancer 11/21/2023 Former tobacco use 11/21/2023 Chronic rhinitis 11/21/2023 History of osteonecrosis 11/21/2023 Overview: Jaw documented as of this encounter (statuses as of 01/23/2024) Resolved Problems Problem Noted Date Diagnosed Date Resolved Date Leg swelling 03/15/2023 11/21/2023 Prediabetes 03/15/2023 11/21/2023 LICHEN SCLEROSIS ET ATROPHICUS 02/11/2009 02/11/2009 LICHEN SCLEROSUS ET ATROPHICUS 02/11/2009 11/21/2023 documented as of this encounter (statuses as of 01/23/2024) Immunizations No known immunizationsdocumented as of this encounter Social History Tobacco Use Types Packs/Day Years Used Date Smoking Tobacco: Former Cigarettes Passive Smoke Exposure: Past Smokeless Tobacco: Former Alcohol Use Standard Drinks/Week Comments No 0 (1 standard drink = 0.6 oz pur e alcohol) Hunger Vital Sign Answer Date Recorded Worried About Running Out of Food in the Last Ye ar Never true 05/18/2019 Ran Out of Food in the Last Year Never true 05/18/2019 Sex and Gender Information Value Date Recorded Sex Assigned at Male 01/23/2024 3:00 PM EDT Gender Identity Male 01/23/2024 3:00 PM EDT Sexual Orientation Straight 01/23/2024 3: 00 PM EDT Job Start Date Occupation Industry Not on file Not on file Not on file documented as of this encounter Miscellaneous Notes * Telephone Encounter - Mukesh Ferrara MD - 01/23/2024 6:36 PM EDT Received critical lab result of troponin greater than 3000 from [facility] lab. Patient was seen in office today due to acute on chronic chest pain that worsened over the last 2 weeks. Called and notified patient. He continues to have epigastric and mid chest pain. Recommended ED evaluation. Patient is alone as his is in [place] and therefore recommended 911 to get him to the ED safely. He was calling his and then will call 911 to get emergency treatment. Mukesh Ferrara MD * Telephone Encounter - Reena Viramontes OSA - 01/23/2024 5:30 PM EDT Mima calling from [facility] lab to result critical lab results for pt. Brohard Text sent to medical office receptionist assistant provider. documented in this encounter Plan of Treatment Upcoming Encounters Date Type Department Care Team (Late st Contact Info) Description 06/01/2024 3:30 PM EDT Imaging Radiology, [address] [place] [address] Health Maintenance Due Date Last Done Comments Pneumococcal Vaccine: 65+ Ye ars (1 of 2 - PCV) 1951 Alpha-1 Antitrypsin 1963 DXA Scan 06/22/2021 06/22/2019 COVID-19 Vaccine ( - 2022-2 4 season) 2023 *BISPHONATE OR OTHER ACCEPTA BLE MEDICATION NEEDED FOR OSTEOPOROSIS (REFER TO SMARTSET #1146) 11/24/2023 *COPD SEVERITY VERIFIED BY PFT 11/24/2023 Influenza Vaccine (FLU shot) (Season Ended) 2024 Depression Screening 01/22/2025 01/23/2024 O2 ASSESSMENT COMPLETED IN P AST YEAR FOR COPD 01/22/2025 01/23/2024 VITAMIN D LEVEL ONCE IN A LIFETIME-USE SMARTSET# 43734 Completed 09/07/2020 DTaP,Tdap,and Td Vaccines Discontinued GARDASIL-HPV IMMUNIZATION SERIES Aged Out No longer eligible based on patient's age to complete this topic Hepatitis B Aged Out No longer eligi ble based on patient's age to complete this topic Hepatitis C Screening Discontinued MENINGOCOCCAL (MENACTRA/MENVEO) Aged Out No longer eligible based on patient's age to complete this topic Zoster Vaccines Discontinued documented as of this encounter Medical Devices Not on filedocumented as of this encounter Care Teams Bookkeeping Clerks Supervisor Relationship Specialty Start Date End Date Denzel Srivastava MD [address] [place] [address] PCP - General Family Medicine 03/15/23 documented as of this encounter
--- OUTSIDE RECORDS SUMMARY | 2024-01-24 21:34 | External Medical Summary | Summary of Care ---
Author Name Unknown Organization [facility] Address [address] [place] [address] Phone [phone] Care Team Providers Care Fitting Room Operator Name Role Phone Denzel Srivastava MD Primary Care Provider [phone] Reason for Visit * Reason Comments Acute Pt here today for ep isodes of light headiness and dizziness and sharp pain in the middle of lower chest areaPt thinks he has difficulty breathing. Pt states he stops breathing when he falls a sleep (he is concerned) Encounter Details Date Type Department Care Team (Late st Contact Info) Description 01/23/2024 2:40 PM EDT Office Visit [facility] [address] [place] [address] Chana Arreaga MD [address] [place] [address] Dizziness*; Epigastric pain; Lung nodule; Other emphysema (HCC); Poor sleep; Other osteoporosis without current pathological fracture; Chest pain, unspecified type Allergies Active Allergy Reactions Criticality Noted Date [...] Passive Smoke Exposure: Past Smokeless Tobacco: Former Tobacco Cessation:Counseling Given: Not Answered Alcohol Use Standard Drinks/Week Comments No 0 [...] on file documented as of this encounter Last Filed Vital Signs Vital Sign Reading Time Taken Comments Blood Pressure 130/70 01/23/2024 2:55 PM EDT Pulse 73 01/23/2024 2:55 PM EDT Temperature 36.7 C (98 F) 01/23/2024 2:55 PM EDT Respiratory Rate 18 01/23/2024 2:55 PM EDT Oxygen Saturation 97% 01/23/2024 2:55 PM EDT Inhaled Oxygen Concentration - - Weight 70.3 kg (155 lb) 01/23/2024 2:55 PM EDT Height - - Body Mass Index 28.35 11/21/2023 11:00 AM EST documented in this encounter Patient Instructions * Patient Instructions* Talita Corcoran LPN - 01/23/2024 3:01 PM EDT Osteoporosis: Screening for Bone Loss The strength of bones is measured by their density (thickness). High bone density means bones are less likely to fracture. If you are at risk for bone loss, your healthcare provider may refer you forbone density testing. Bone Density Testing Bone density testing is safe, quick, easy, and painless. Testing can detect osteoporosis before a fracture happens. It can also predict the risk of future fractures. And testing can measure the response to treatment. There are two types of tests that you may have: Peripheral tests are used for screening. They measure density in the finger, wrist, knee, ruiz, or heel. A common peripheral test is the quantitative ultrasound (QUS). Central tests are used for diagnosis. They measure density in the hip or spine. The main centraltest is the dual energy x-ray absorptiometry (DXA). The DXA is the standard bone density test. Who Should Be Tested? All postmenopausal women under age 65, with one or more risk factors in addition to menopause. All women age 65 and older. Postmenopausal women with fractures. Women who are thinking about treatment for osteoporosis. Women who have been on hormone therapy for a long time. Men or women with certain medical conditions or who are taking certain medications (such as glucocorticoids or prednisone) for a long period. Common Testing Sites Any bone can fracture, but with osteoporosis some bones fracture more easily. These include bones in the spine, wrist, shoulder, and hip. Thats why bone density testing may be done at one or more of these sites. Understanding Your Results The results of your test may seem confusing at first. Dont be afraid to ask your provider to explain. Your bone mineral density (BMD) describes the thickness of the bone that was scanned. Your healthcare provider will compare your BMD with the BMD of young, healthy bone. The result is called a T-score. Bones remodel at different rates. So, a healthy T-score in the wrist doesnt mean the spine is also healthy. Thats why more than one site may be scanned. [id number] [facility], [address] [place] [address]. All rights reserved. This information is not intended as a substitute for professional medical care. Always follow your healthcare professional's instructions documented in this encounter Progress Notes * Chaan Arreaga MD - 01/23/2024 3:10 PM EDT Subjective Tyler Parnell is a 78 year old male. Chief Complaint Patient presents with Acute Pt here today for episodes of light headiness and dizziness and sharp pain in the middle of lower chest area Pt thinks he has difficulty breathing. Pt states he stops breathing when he falls a sleep (he is concerned) HPI: Here to discuss about epigastric pain which is chronic but last a couple of week , it became more frequent , noticeable Usually in the evening, after dinner but nowadays even during the day No pain at this time Not exertional/ non radiating , some dizziness occ but denies SOB, palpitation, leg swelling Will still get cardiac pulmonary blood tests , will try PPI for possible stomach issue , hx of hiatal hernia Had EGD a few years ago BP stable , not on med No known DM PMH: Patient Active Problem List Diagnosis Code Dyslipidemia E78.5 Positive CLAY (antinuclear antibody) R76.8 History of prediabetes Z87.898 Lung nodules R91.8 Other emphysema (HCC) J43.8 Arterial calcification I70.90 Other osteoporosis without current pathological fracture M81.8 BPH with obstruction/lower urinary tract symptoms N40.1, N13.8 Low testosterone in male R79.89 History of skin cancer Z85.828 Former tobacco use Z87.891 Chronic rhinitis J31.0 History of osteonecrosis Z87.39 Current Outpatient Medications Medication Sig Dispense Refill Misc Natural Products (SAW [place]METTO PLUS) CAPS Take by mouth. Multiple Vitamins-Minerals (MULTIVITAMIN ADULT) TABS Take by mouth. Ascorbic Acid (VITAMIN C) 1000 MG Tablet Take 1 Tablet by mouth in the morning. Takes 4000 mg daily. B Complex Capsule Take 1 Cap by mouth daily. Cholecalciferol (VITAMIN D-3) 125 MCG (5000 UT) Tablet Take 1 Tablet by mouth in the morning. Takeswith 180 mcg of Vitamin K.. Triamcinolone Acetonide 0.1 % External Cream (Aristocort) Apply to the distal lower extremities twice a day for 10 days. Then use twice a day as needed for stasis dermatitis. 453.6 g 0 Omeprazole 20 MG Oral Capsule Delayed Release (PriLOSEC) Take 1 Capsule by mouth in the morning. 1 hour before the first meal of the day. 30 Capsule 5 No current facility-administered medications for this visit. Past Medical History: Diagnosis Date History of tuberculosis Leg swelling LICHEN SCLEROSUS ET ATROPHICUS Post herpetic neuralgia Prediabetes No past surgical history on file. Review of patient's allergies indicates: Allergen Reactions Augmentin [Amoxicillin-Pot Clavulanate] Severe GI distress No family history on file. No family status information on file. Social History Socioeconomic History Marital status: Spouse name: Not on file Number of children: Not on file Years of education: Not on file Highest education level: Not on file Occupational History Not on file Tobacco Use Smoking status: Former Types: Cigarettes Passive exposure: Past Smokeless tobacco: Former Substance and Sexual Activity Alcohol use: No Drug use: No Sexual activity: Yes Partners: Female Other Topics Concern Not on file Social History Narrative Not on file Social Determinants of Health Financial Resource Strain: Not on file Food Insecurity: Patient Declined (01/23/2024) Hunger Vital Sign Worried About Running Out of Food in the Last Year: Patient declined Ran Out of Food in the Last Year: Patient declined Transportation Needs: Not on file Physical Activity: Not on file Stress: Not on file Social Connections: Not on file Intimate Partner Violence: Not on file Housing Stability: Not on file Review of Systems Constitutional: Positive for appetite change (mild nausea). Negative for activity change, chills, diaphoresis, fatigue, fever and unexpected weight change. Respiratory: Negative for cough, chest tightness, shortness of breath and wheezing. Cardiovascular: Positive for chest pain (? epigastrium , lower center sternum area?). Negative for palpitations and leg swelling. Gastrointestinal: Positive for abdominal pain (epigastric , non exertional) and nausea. Negative for abdominal distention, constipation, diarrhea and vomiting. Endocrine: Negative. Neurological: Positive for dizziness and light-headedness. Negative for weakness and headaches. Psychiatric/Behavioral: Positive for sleep disturbance. Negative for agitation and behavioral problems. The patient is nervous/anxious. Objective BP 130/70 | Pulse 73 | Temp 36.7 C (98 F) (Infrared ) | Resp 18 | Wt 70.3 kg (155 lb) | SpO2 97% | BMI 28.35 kg/m | BSA 1.75 m Physical Exam Constitutional: General: He is not in acute distress. Appearance: Normal appearance. He is not ill-appearing, toxic-appearing or diaphoretic. HENT: Head: Normocephalic. Nose: Nose normal. Eyes: Extraocular Movements: Extraocular movements intact. Cardiovascular: Rate and Rhythm: Normal rate and regular rhythm. Pulses: Normal pulses. Heart sounds: Normal heart sounds. No murmur heard. Pulmonary: Effort: Pulmonary effort is normal. No respiratory distress. Breath sounds: Normal breath sounds. No stridor. No wheezing, rhonchi or rales. Chest: Chest wall: No tenderness. Abdominal: General: There is no distension. Palpations: Abdomen is soft. There is no mass. Tenderness: There is no abdominal tenderness. There is no guarding or rebound. Hernia: No hernia is present. Musculoskeletal: Right lower leg: No edema. Neurological: General: No focal deficit present. Mental Status: He is alert and oriented to person, place, and time. Psychiatric: Behavior: Behavior normal. Comments: Mild anxiety ASSESSMENT/PLAN: Dizziness (Primary) - D-DIMER; Future; Expected date: 01/23/2024 - TROPONIN T, HIGH SENSITIVITY; Future; Expected date: 01/23/2024 - CBC WITH WBC DIFFERENTIAL; Future; Expected date: 01/23/2024 - COMPREHENSIVE METABOLIC PANEL; Future; Expected date: 01/23/2024 Epigastric pain - D-DIMER; Future; Expected date: 01/23/2024 - TROPONIN T, HIGH SENSITIVITY; Future; Expected date: 01/23/2024 - CBC WITH WBC DIFFERENTIAL; Future; Expected date: 01/23/2024 - COMPREHENSIVE METABOLIC PANEL; Future; Expected date: 01/23/2024 - LIPASE; Future; Expected date: 01/23/2024 Lung nodule Other emphysema (HCC) Poor sleep Other osteoporosis without current pathological fracture - DEXA SCAN/BONE MINERAL AXIAL; Future; Expected date: 01/23/2024 Chest pain, unspecified type - D-DIMER; Future; Expected date: 01/23/2024 - TROPONIN T, HIGH SENSITIVITY; Future; Expected date: 01/23/2024 - CBC WITH WBC DIFFERENTIAL; Future; Expected date: 01/23/2024 - COMPREHENSIVE METABOLIC PANEL; Future; Expected date: 01/23/2024 - LIPASE; Future; Expected date: 01/23/2024 Other orders - Omeprazole 20 MG Oral Capsule Delayed Release (PriLOSEC); Take 1 Capsule by mouth in the morning.1 hour before the first meal of the day. Check-out note: Print out blood tests Dexa F/u tests Trial omeprazole If gets worse, will consider EGD too Addendum : troponin came out high per PCP call Pt was sent to ER for ACS for further management around 6:20 pm Chana Arreaga MD * Talita Corcoran LPN - 01/23/2024 3:01 PM EDT Dexa scan ordered today. Provider aware. Talita Corcoran LPN documented in this encounter Nursing Notes * Talita Corcoran LPN - 01/23/2024 2:49 PM EDT Chief Complaint Patient presents with Acute Pt here today for episodes of light headiness and dizziness and sharp pain in the middle of lower chest area Pt thinks he has difficulty breathing. Pt states he stops breathing when he falls a sleep (he is concerned) documented in this encounter Plan of Treatment Upcoming Encounters Date Type Department Care Team (Late st Contact Info) Description 06/01/2024 3:30 PM EDT Imaging Radiology, [address] [address] Scheduled Orders Name Type Priority Associated Diagnoses Orde r Schedule DEXA SCAN/BONE MINERAL AXIAL Medical Imaging Routine Other osteoporosis without current pathological fracture Expected: 01/23/2024 (Approximate), Expires: 02/21/2025 D-DIMER Lab Routine Epigastric pain Dizziness Chest pain, unspecified type Expected: 01/23/2024 (Approximate), Expires: 01/22/2025 TROPONIN T, HIGH SENSITIVITY Lab Routine Epigastric pain Dizziness Chest pain, unspecified type Expected: 01/23/2024 (Approximate), Expires: 01/22/2025 CBC WITH WBC DIFFERENTIAL Lab Routine Epigastric pain Dizziness Chest pain, unspecified type Expected: 01/23/2024 (Approximate), Expires: 01/22/2025 COMPREHENSIVE METABOLIC PANEL Lab Routine Epigastric pain Dizziness Chest pain, unspecified type Expected: 01/23/2024 (Approximate), Expires: 01/22/2025 LIPASE Lab Routine Epigastric pain Chest pain, unspecified type Expected: 01/23/2024 (Approximate), Expires: 01/22/2025 Health Maintenance Due Date Last Done Comments [...] D LEVEL ONCE IN A LIFETIME-USE SMARTSET# [id number] Completed 09/07/2020 DTaP,Tdap,and Td Vaccines Discontinued GARDASIL-HPV [...] Not on filedocumented as of this encounter Visit Diagnoses Diagnosis Dizziness- Primary Dizziness and giddiness Epigastric pain Abdominal pain, epigastric Lung nodule Solitary pulmonary nodule Other emphysema (HCC) Other emphysema Poor sleep Other osteoporosis without current pathological fracture Chest pain, unspecified type documented in this encounter Care Teams Fitting Room Operator Relationship Specialty Start Date End Date Denzel Srivastava MD [address] [place] [address] PCP - General Family Medicine 03/15/23 documented as of this encounter"
--- NOTE | 2024-01-24 21:43 | Electrocardiogram Report ---
Test Reason : Blood Pressure : / mmHG Vent. Rate : 072 BPM Atrial Rate : 072 BPM P-R Int : 162 ms QRS Dur : 138 ms QT Int : 382 ms P-R-T Axes : 061 -69 -16 degrees QTc Int : 418 ms Sinus rhythm with Premature supraventricular complexes Right bundle branch block Left anterior fascicular block Bifascicular block Inferior infarct , age undetermined Abnormal ECG When compared with ECG of 08-MAR-2009 12:06, Premature supraventricular complexes are now Present (RBBB and left anterior fascicular block) is now Present Inferior infarct is now Present Confirmed by Christiano Jackson ([id number]) on 01/24/2024 9:43:08 PM Referred By: Chana Arreaga Confirmed By:Christiano Jackson
--- NOTE | 2024-01-24 21:43 | Electrocardiogram Report ---
Test Reason : Blood Pressure : / mmHG Vent. Rate : 062 BPM Atrial Rate : 062 BPM P-R Int : 150 ms QRS Dur : 140 ms QT Int : 452 ms P-R-T Axes : 058 -67 -33 degrees QTc Int : 458 ms Normal sinus rhythm Right bundle branch block Left anterior fascicular block Bifascicular block Minimal voltage criteria for LVH, may be normal variant ( R in aVL ) Inferior infarct (cited on or before 23-JAN-2024) Abnormal ECG When compared with ECG of 23-JAN-2024 19:31, Premature supraventricular complexes are no longer Present Confirmed by Christiano Jackson ([id number]) on 01/24/2024 9:43:31 PM Referred By: Chana Arreaga Confirmed By:Christiano Jackson
--- NOTE | 2024-01-24 21:44 | Electrocardiogram Report ---
Test Reason : Blood Pressure : / mmHG Vent. Rate : 069 BPM Atrial Rate : 069 BPM P-R Int : 158 ms QRS Dur : 138 ms QT Int : 436 ms P-R-T Axes : 062 -67 -34 degrees QTc Int : 467 ms Normal sinus rhythm Left axis deviation Right bundle branch block Minimal voltage criteria for LVH, may be normal variant ( R in aVL ) Inferior infarct (cited on or before 23-JAN-2024) Abnormal ECG When compared with ECG of 23-JAN-2024 19:46, No significant change Confirmed by Christiano Jackson ([id number]) on 01/24/2024 9:43:50 PM Referred By: Chana Arreaga Confirmed By:Christiano Jackson
--- NOTE | 2024-01-24 21:44 | Electrocardiogram Report ---
Test Reason : Blood Pressure : / mmHG Vent. Rate : 068 BPM Atrial Rate : 068 BPM P-R Int : 152 ms QRS Dur : 134 ms QT Int : 440 ms P-R-T Axes : -01 -69 -36 degrees QTc Int : 467 ms Normal sinus rhythm Left axis deviation Right bundle branch block Inferior infarct (cited on or before 23-JAN-2024) Abnormal ECG When compared with ECG of 24-JAN-2024 00:38, No significant change was found Confirmed by Christiano Jackson ([id number]) on 01/24/2024 9:44:07 PM Referred By: Chana Arreaga Confirmed By:Christiano Jackson
--- NOTE | 2024-02-04 07:32 | Coding Query ---
PRESENT ON ADMISSION QUERY To promote full compliance with coding requirements relating to pateint care, physician participation is requested in all cases of remote inpatient coder uncertainty. Please assist us with the question(s) below: Please place an X within the parenthesis (x). The following diagnosis listed in this patient's medical record require physician assistance to determine if they were present on admission (POA) or not. Please advise for each diagnosis whether it was present on admission, not present on admission, or if it was clinically undetermined. 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 Conditions that develop during an outpatient encounter prior to a written order for inpatient admission (including emergency department, observation, or outpatient surgery) are considered present on admission. MTDD
== END 2024-01-24 16:45 | disposition short-term general hospital (02) | DRG 281 ==
LOC: ED 19:16 → 2S 01-24 01:03